=== PATIENT | male | born 1975 | race Caucasian/White ===

== ENCOUNTER 2018-05-10 16:40 | Inpatient (IN) | payer MEDICAID, OTHER ==
[2018-05-10 17:07] VITALS: BMI 22.2
--- NOTE | 2018-05-10 17:32 | C.PDOC ---
History Of Present Illness 43 years old male presents to ED requesting detox from heroin. Patient states he injects. He also reports last use was today. Denies SI, HI, or any other complaints. Time Seen by Provider: 05/10/18 17:10 Chief Complaint (Nursing): Substance Abuse History Per: Patient History/Exam Limitations: no limitations Onset/Duration Of Symptoms: Hrs Current Symptoms Are (Timing): Still Present Suicide/Self Injury Attempted (Context): None Modifying Factor(s): Narcotics (Heroin ) Associated Symptoms: denies: Suicidal Thoughts, Suicidal Plan Involuntary Hold By: None Recent travel outside of the [place]: No Past Medical History Reviewed: Historical Data, Nursing Documentation, Vital Signs Vital Signs: Last Vital Signs Temp 98.6 F 05/10/18 17:07 Pulse 77 05/10/18 17:07 Resp 18 05/10/18 17:07 BP 116/77 05/10/18 17:07 Pulse Ox 98 05/10/18 17:07 - Medical History PMH: COPD, Depression - [facility] Procedures DETOXIFICATION SERVICES FOR SUBSTANCE ABUSE TREATMENT (10/29/17) GROUP CONSUMER LOAN MANAGER FOR SUBSTANCE ABUSE TREATMENT, PSYCHOEDUCATION (10/29/17) INDIV PSYCHOTHERAPY FOR SUBSTANCE ABUSE TREATMENT, SUPPORT (10/29/17) Family History: States: No Known Family Hx - Social History Hx Alcohol Use: Yes Hx Substance Use: Yes - Immunization History Hx Tetanus Toxoid Vaccination: No Hx Influenza Vaccination: No Hx Pneumococcal Vaccination: No Review Of Systems Except As Marked, All Systems Reviewed And Found Negative. Constitutional: Negative for: Fever Psych: Negative for: Suicidal ideation Physical Exam - Physical Exam Additional Physical Exam Comments: Constitutional: No acute distress. Head: Normocephalic. Atraumatic. Eyes: PERRL. ENT: Moist mucous membranes. Neck: Supple. Cardiovascular: Regular rate. Radial pulse 2+ bilaterally. Chest: No tenderness. Respiratory: Clear to auscultation bilaterally. GI: Soft. Nontender. Nondistended. Back: No CVA tenderness. Musculoskeletal: No tenderness or swelling of extremities. Skin: No rash. Neurologic: Alert, no focal deficit. ED Course And Treatment - Laboratory Results Result Diagrams: 05/10/18 17:49 05/10/18 17:49 O2 Sat by Pulse Oximetry: 98 (RA) Pulse Ox Interpretation: Normal Medical Decision Making Medical Decision Making: Plan: * Blood work * Urinalysis * Crisis notified Disposition - Disposition Disposition: HOSPITALIZED Disposition Time: 19:00 Condition: STABLE - Clinical Impression Clinical Impression: Opioid use disorder, severe, dependence - Scribe Statement The provider has reviewed the documentation as recorded by the Niniibzahira Marti
[2018-05-10 17:52] LABS: BASO % 0.6 % (0.0-2.0); EOS % 0.6 % (0.0-4.0); HEMOGLOBIN 14.7 g/dL (12.0-18.0); LYMPH # 1.2 K/uL (1.0-4.3); LYMPH % 16.4 % (20.0-40.0); MEAN CELL VOLUME 88.9 fL (80.0-94.0); MEAN CORPUSCULAR HEMOGLOBIN 29.4 pg (27.0-31.0); MEAN PLATELET VOLUME 8.6 fL (7.2-11.7); MONO # 0.3 K/uL (0.0-0.8); MONO % 3.9 % (0.0-10.0); NEUT # 5.6 K/uL (1.8-7.0); NEUT % 78.5 % (50.0-75.0); NRBC % 0.1 % (0.0-2.0); RBC 5.02 Mil/uL (4.40-5.90); RED CELL DISTRIBUTION WIDTH 13.8 % (11.5-14.5); WHITE BLOOD COUNT 7.2 K/uL (4.8-10.8)
[2018-05-10 18:04] LABS: ALB/GLOB RATIO 1.1 (1.0-2.1); ALBUMIN 4.4 g/dL (3.5-5.0); ALT/SGPT 55 U/L (21-72); AST/SGOT 51 U/L (17-59); BLOOD UREA NITROGEN 11 mg/dL (9-20); CALCIUM 9.3 mg/dl (8.6-10.4); GFR NON-AFRICAN AMERICAN > 60
[2018-05-10 18:33] LABS: SQUAMOUS EPITHIAL 1 /hpf (0-5); URINE BACTERIA RARE (<OCC); URINE BILIRUBIN NEGATIVE (NEGATIVE); URINE BLOOD NEGATIVE (NEGATIVE); URINE CALCIUM OXALATE CRYSTALS OCC /hpf (<OCC); URINE CLARITY Hazy (Clear); URINE COLOR Amber (YELLOW); URINE GLUCOSE (UA) NORMAL (Normal); URINE LEUKOCYTE ESTERASE NEG Leu/uL (Negative); URINE PROTEIN 1+ mg/dL (NEGATIVE)
[2018-05-10 18:59] LABS: BARBITURATES, UR NEGATIVE (NEGATIVE); BENZODIAZEPINES, UR NEGATIVE (NEGATIVE); PHENCYCLIDINE, UR NEGATIVE (NEGATIVE)
[2018-05-10 19:00] LABS: OPIATES, UR POSITIVE (NEGATIVE)
--- NOTE | 2018-05-10 20:12 | PCM.BM ---
<RashawnJarredDilcia - Last Filed: 05/10/18 20:10> Treatment Plan Problems - Problems identified on initial assessmt Ineffective health Maintenance Date Initiated: 05/10/18 Time Initiated: 20:11 Assessment reference: NA Status: Active Treatment assets and liabiliti Patient Assests: cooperative, ADL independent, negotiates basic needs, cognitively intact Patient Liabilities: live alone, poor support system, substance abuse (Opiates, cocaine), other (homelessness) - Milieu Protocol Maintain good personal hygiene: daily Encourage regular showers, daily Remind patient to perform daily oral care, daily Assist patient to perform ADL's Conduct patient checks and document Observation sheet: Q15 minutes Maintain personal safety: every shift Educate patient to report safety concerns to staff, every shift Monitor environment for contraband/sharps Medication safety: Monitor for expected outcome, potential side effects: every shift, Assess barriers to learning: every shift, Assess readiness for medication education: every shift <Kristina Flores - Last Filed: 05/12/18 18:45> - Diagnosis (1) Opioid use disorder, severe, dependence Status: Acute Interventions: 05/12/18 18:45 * Assess 7x/week regarding severity of withdrawal * Educate regarding risks, benefits, side effects and alternatives of medications * Use Motivational Interviewing for abstinence * Use CBT for relapse prevention * Medication management for withdrawal symptoms * Encourage medication assisted treatment *
[2018-05-10] MEDS ORDERED: Aluminum Hydroxide/Magnesium Hydroxide Susp (30 mL) PO PRN (21:29)
--- NOTE | 2018-05-11 09:40 | PCM.PSYCH ---
Initial Psychiatric Evaluation - Initial Psychiatric Evaluation Type of Admission: Voluntary Legal Status: Capacity Chief Complaint (in patient's own words): "Alcohol" History of Present Illness and Precipitating Events: The patient is seen, chart reviewed and case discussed. This is a 43-year-old male, with 3 children, all adults, currently he is unemployed, lost his job and apartment He used to stay with [facility] but now he is homeless. The patient is here for heroin detox and he is using up to 10 bags IV. He used for 25 years. His longest sobriety was less than 2 years. He used Suboxone 12 months ago, and he has been to detox three times, incl. here 6 months ago, rehabilitation 3 times. He went to [facility] but he quit 6 weeks after as he found a job but relapsed few weeks after. He uses cocaine IV also for 22 years and still does and used alcohol from age 15 to 29 but stopped after that. He denies all other drugs but smokes 1-2 packs per day cigarettes, and marijuana sometimes. Past psych history: Bipolar disorder and had admitted in [place] long ago. Non- compliant with treatment. Has depressive sxs now Family psych history: Mother and many other relatives on her side had alcohol and drug problems. Medical history: COPD (stable for years) and hepatitis C. Current Medications: Active Medications Generic Name Dose Route Start Last Admin Trade Name Freq PRN Reason Stop Dose Admin Al Hydrox/Mg Hydrox/Simethicone 30 ml 05/10/18 21:29 Maalox 30 Ml PO TID PRN Indigestion / Heartburn Clonidine HCl 0.1 mg 05/10/18 21:29 05/11/18 04:53 Catapres PO 0.1 mg Q4 PRN Administration COWS Score More or Equal to 5 Hydroxyzine HCl 25 mg 05/10/18 20:34 05/11/18 04:53 Atarax PO 25 mg Q6 PRN Administration Anxiety Ibuprofen 600 mg 05/10/18 21:29 05/11/18 04:53 Motrin Tab PO 600 mg Q6H PRN Administration Pain, moderate (4-7) Loperamide HCl 2 mg 05/10/18 21:29 Imodium PO Q8 PRN Diarrhea Ondansetron HCl 4 mg 05/10/18 21:29 05/11/18 04:53 Zofran Tab PO 4 mg Q8 PRN Administration Nausea/Vomiting Trazodone HCl 50 mg 05/10/18 20:35 05/10/18 21:11 Desyrel PO 50 mg HS PRN Administration Insomnia Past Psychiatric History - Past Psychiatric History Previous Treatment History: Inpatient Pertinent Medical Hx (Current Medical&Sleep Prob, Allergies): Allergies Allergy/AdvReac Type Severity Reaction Status Date / Time No Known Allergies Allergy Verified 05/10/18 17:07 traZODone [Desyrel] 100 mg PO HS PRN #30 tab 11/01/17 Review of Systems - Psychiatric Psychiatric: Abnormal Sleep Pattern, Anhedonia, Anxiety, Change in Appetite, Depression, Difficulty Concentrating, Irritability, Mood Swings. absent: Hallucinations, Homicidal Ideation, Paranoia, Suicidal Ideation Mental Status Examination - Personal Presentation Personal Presentation: Looks stated age - Affect Affect: Constricted - Motor Activity Motor Activity: Calm - Reliability in Providing Information Reliability in Providing Information: Good - Speech Speech: Organized - Mood Mood: Depressed, Anxious - Formal Thought Process Formal Thought Process: No Impairment - Cognitive Functions Orientation: Person, Place, Situation, Time Sensorium: Alert Attention/Concentration: Easily distracted Estimate of Intelligence: Average Judgement: Intact, as evidence by: Insight regarding need for hospitalization Memory: Recent intact, as evidence by: Ability to recall events of the day, Remote intact, as evidenced by: Abilit to recall sig. life events - Risk Risk: Withdrawal, Diminished functioning - Strength & Assets Inventory Strength & Assets Inventory: Employment history, Cooperative - Limitations Limitations: Living alone DSM 5 DX - DSM 5 DSM 5 Diagnosis: Opioid withdrawal Opioid use disorder, severe Cocaine use disorder, severe Bipolar disorder, depressed COPD Hepatitis C Alcohol use disorder, moderate - Recommended/Plan of Treatment Treatment Recommendations and Plan of Treatment: Taper with Subutex which he used in the past with good result. Gabapentin for augmentation As needed medications All risks, benefits and alternatives of the meds discussed, and the pt agreed and understood. Attend groups and activities Supportive therapy and psychoeducation [place] for abstinence CBT for relapse prevention Encourage MAT Refer to rehab or IOP, and self-help groups Teach healthy lifestyle methods, i.e. diet, exercise, meditation Smoking cessation with [facility] Nicotine patch if needed 34 min Projected ELOS: 4-5 days Prognosis: Good with treatment - Smoking Cessation Smoking Cessation Initiated: Yes
[2018-05-11] MEDS ORDERED: Buprenorphine Hydrochloride 2 mg SL ONE ×3 (09:47→17:00)
[2018-05-12] MEDS: Buprenorphine Hydrochloride 2 mg SL SCH ×2 (10:16→10:28)
--- NOTE | 2018-05-12 19:15 | PCM.PYCHPN ---
Psychiatric Progress Note - Psychiatric Progress Note Patient seen today, length of contact: 16 minutes Patient Chief Complaint: "Alcohol" Problems Identified/Issues Discussed: The pt is seen, chart reviewed, case discussed with staff. The pt is compliant with medications and reports no side-effects. Symptoms are improving but needs more time to stabilize. He was angry that he had so much wdw sxs last night An extra dose was given but he still threw up He threatened AMA today but did stay with reassurance and psychoed Pt attends some groups and activities. Support given, psycho-education provided. After care discussed. Medication Change: Yes (Detox changes daily) Medical Record Reviewed: Yes Mental Status Examination - Cognitive Function Orientation: Person, Place, Situation, Time Memory: Intact Attention: WNL Concentration: Poor Association: WNL Fund of Knowledge: WNL - Mood Mood: Depressed, Anxious - Affect Affect: Constricted - Speech Speech: Appropriate - Formal Thought Process Formal Thought Process: No Impairment - Suicidal Ideation Suicidal Ideation: No - Homicidal Ideation Homicidal Ideation: No Goal/Treatment Plan - Goal/Treatment Plan Need for Continued Stay: Discharge may exacerbated symptoms, Severe functional impairment Progress Toward Problem(s) and Goals/Treatment Plan: Taper with Subutex which he used in the past with good result. Gabapentin for augmentation As needed medications All risks, benefits and alternatives of the meds discussed, and the pt agreed and understood. Attend groups and activities Supportive therapy and psychoeducation [place] for abstinence CBT for relapse prevention Encourage MAT Refer to rehab or IOP, and self-help groups Teach healthy lifestyle methods, i.e. diet, exercise, meditation Smoking cessation with [place] Nicotine patch if needed
[2018-05-13] MEDS: Buprenorphine Hydrochloride 2 mg SL SCH (10:13)
--- NOTE | 2018-05-13 13:42 | PCM.PYCHPN ---
Psychiatric Progress Note - Psychiatric Progress Note Patient seen today, length of contact: 16 minutes Patient Chief Complaint: "Anxious, still not sleeping well" Problems Identified/Issues Discussed: The pt is seen, chart reviewed, case discussed with staff. Support and psychoeducation given, CBT and [place] used briefly No new symptoms reported, improving slowly and needs more time Still somewhat sick, pessimistic but will "stay" No SEs from medications, risks discussed. After care discussed Medication Change: Yes (Detox changes daily) Medical Record Reviewed: Yes Mental Status Examination - Cognitive Function Orientation: Person, Place, Situation, Time Memory: Intact Attention: WNL Concentration: Poor Association: WNL Fund of Knowledge: WNL - Mood Mood: Depressed, Anxious - Affect Affect: Constricted - Speech Speech: Appropriate - Formal Thought Process Formal Thought Process: No Impairment - Suicidal Ideation Suicidal Ideation: No - Homicidal Ideation Homicidal Ideation: No Goal/Treatment Plan - Goal/Treatment Plan Need for Continued Stay: Discharge may exacerbated symptoms, Severe functional impairment Progress Toward Problem(s) and Goals/Treatment Plan: Taper with Subutex, extra doses if needed Gabapentin for augmentation As needed medications All risks, benefits and alternatives of the meds discussed, and the pt agreed and understood. Attend groups and activities Supportive therapy and psychoeducation [place] for abstinence CBT for relapse prevention Encourage MAT Refer to rehab or IOP, and self-help groups Teach healthy lifestyle methods, i.e. diet, exercise, meditation Smoking cessation with [place] Nicotine patch if needed
[2018-05-13 14:12] VITALS: RESP 18
[2018-05-14] MEDS: Buprenorphine Hydrochloride 2 mg SL SCH (10:24)
--- NOTE | 2018-05-14 10:58 | PCM.PYCHPN ---
Psychiatric Progress Note - Psychiatric Progress Note Patient seen today, length of contact: 16 minutes Patient Chief Complaint: I am still feeling withdrawal symptoms Problems Identified/Issues Discussed: Patient was seen and evaluated, chart reviewed and discussed with the staff. Patient still reports withdrawal symptoms and still reports sweating, headaches, anxiety and shakes. Patient denies any feelings of hopelessness and helplessness. He denies any auditory hallucinations or any paranoia. He is compliant with the withdrawal medications and denies any side effects Symptoms are improving but he needs to stay longer for further stabilization. Supportive therapy was given Medication Change: Yes (Detox changes daily) Medical Record Reviewed: Yes Mental Status Examination - Cognitive Function Orientation: Person, Place, Situation, Time Memory: Intact Attention: WNL Concentration: Poor Association: WNL Fund of Knowledge: WNL - Mood Mood: Depressed, Anxious - Affect Affect: Constricted - Speech Speech: Appropriate - Formal Thought Process Formal Thought Process: No Impairment - Suicidal Ideation Suicidal Ideation: No - Homicidal Ideation Homicidal Ideation: No Goal/Treatment Plan - Goal/Treatment Plan Need for Continued Stay: Discharge may exacerbated symptoms, Severe functional impairment Progress Toward Problem(s) and Goals/Treatment Plan: Opioid withdrawal Opioid use disorder, severe Cocaine use disorder, severe Bipolar disorder, depressed COPD Hepatitis C Alcohol use disorder, moderate Taper with Subutex which he used in the past with good result. Gabapentin for augmentation As needed medications All risks, benefits and alternatives of the meds discussed, and the pt agreed and understood. Attend groups and activities Supportive therapy and psychoeducation [facility] for abstinence CBT for relapse prevention Encourage MAT Refer to rehab or IOP, and self-help groups Teach healthy lifestyle methods, i.e. diet, exercise, meditation Smoking cessation with [place] Nicotine patch if needed
[2018-05-14 19:31] VITALS: O2SAT 98
[2018-05-15] MEDS: Buprenorphine Hydrochloride 2 mg SL SCH (09:08)
[2018-05-15 10:08] VITALS: BP 104/70; PULSE 66; TEMP 97.6
--- NOTE | 2018-05-15 21:09 | PCM.PYCHDC ---
Mental Status Examination - Mental Status Examination Orientation: Person, Place, Situation, Time Memory: Intact Mood: Neutral Affect: Other (Appropriate) Speech: Soft Attention: WNL Concentration: WNL Association: WNL Fund of Knowledge: WNL Formal Thought Process: No Impairment Description of patient's judgement and insight: Fair Psychotic Thoughts and Behaviors: None Suicidal Ideation: No Current Homicidal Ideation?: No Discharge Summary - Discharge Note Reason for Hospitalization: Opioid use disorder severe. Cocaine use disorder severe. Alcohol use disorder moderate. Bipolar disorder depressed Laboratory Data: Reviewed Consultations:: List each consultation separately and include: 1. Reason for request. 2. Findings. 3. Follow-up Summary of Hospital Course include:: 1. Description of specific treatment plan utilized for patients during their course of treatmen. 2. Summarize the time- course for resolution of acute symptoms and/or regressed behaviors. 3. Describe issues identified and worked on during hospitalization. 4. Describe medication utilized. 5. Describe medical problems identified and treated. 6. Reassessment of suicide risk Summary of Hospital Course: The patient is seen, chart reviewed and case discussed. This is a 43-year-old male, with 3 children, all adults, currently he is unemployed, lost his job and apartment He used to stay with friends but now he is homeless. The patient is here for heroin detox and he is using up to 10 bags IV. He used for 25 years. His longest sobriety was less than 2 years. He used Suboxone 12 months ago, and he has been to detox three times, incl. here 6 months ago, rehabilitation 3 times. He went to [facility] but he quit 6 weeks after as he found a job but relapsed few weeks after. He uses cocaine IV also for 22 years and still does and used alcohol from age 15 to 29 but stopped after that. He denies all other drugs but smokes 1-2 packs per day cigarettes, and marijuana sometimes. Past psych history: Bipolar disorder and had admitted in [place] long ago. Non- compliant with treatment. Has depressive sxs now Family psych history: Mother and many other relatives on her side had alcohol and drug problems. Medical history: COPD (stable for years) and hepatitis C. During his stay in the hospital patient was treated for taper for opiate withdrawal symptoms. Patient was also started on other when necessary medications. Patient was attending groups and other activities on the unit. With above treatment patient started feeling better, had no withdrawal symptoms. Today patient was stable and ready for discharge. At the time of evaluation and discharge, patient was awake, alert and oriented 3, had no delusions, no auditory or visual hallucinations, no suicidal ideations or homicidal ideations. Patient was discharged in a stable condition. - Final Diagnosis (DSM 5) Condition upon Discharge: STABLE Disposition: HOME/ ROUTINE Follow-up Treatment Plan: Patient will go to [facility] for follow-up care after discharge from the hospital. Prescriptions/Medication Reconciliation: RX: Gabapentin [Neurontin] 300 mg PO TID #90 cap RX: QUEtiapine [SEROquel] 50 mg PO HS #30 tab RX: traZODone [Desyrel] 100 mg PO HS PRN #30 tab PRN Reason: Insomnia - Smoking Cessation Smoking Cessation Medication prescribed: No - Antipsychotic Medications Pt discharged on 2 or more routine antipsychotic medications: No
== END 2018-05-15 12:16 | disposition home or self-care (01) | DRG 772 ==
LOC: C.ER 16:40 → C.7D 19:02
PROVIDERS: ADMIT Psychiatry & Neurology Psychiatry; ATTEND Psychiatry & Neurology Psychiatry
PROC: HZ2ZZZZ Detoxification Services for Substance Abuse Treatment (ICD-10-PCS; principal; 2018-05-10)
PROC: GZ3ZZZZ Medication Management (ICD-10-PCS; 2018-05-10)
PROC: HZ80ZZZ Medication Management for Substance Abuse Treatment, Nicotine Replacement (ICD-10-PCS; 2018-05-10)
PROC: HZ46ZZZ Group Counseling for Substance Abuse Treatment, Psychoeducation (ICD-10-PCS; 2018-05-10)
PROC: HZ59ZZZ Individual Psychotherapy for Substance Abuse Treatment, Supportive (ICD-10-PCS; 2018-05-10)
DX: F11.23 Opioid dependence with withdrawal (principal); F14.20 Cocaine dependence, uncomplicated; F10.20 Alcohol dependence, uncomplicated; F17.210 Nicotine dependence, cigarettes, uncomplicated; B19.20 Unspecified viral hepatitis C without hepatic coma; F31.9 Bipolar disorder, unspecified; F41.9 Anxiety disorder, unspecified; J44.9 Chronic obstructive pulmonary disease, unspecified; Z59.0 Homelessness; Z91.19 Patient's noncompliance with other medical treatment and regimen